=== PATIENT | female | born 1950 | race Caucasian/White ===

== ENCOUNTER 2021-09-25 11:31 | Outpatient (CLI) | payer MEDICARE ==
[~2021-09-25 11:31] MED LIST: ATOR40TA PO; BUPR150T5 PO; DIPH25CA83 PO
[2021-09-25 12:16] LABS: MEAN CORPUSCULAR HEMOGLOBIN 31.1 uug (24.7-32.8); MEAN CORPUSCULAR VOLUME 91.2 fL (75.5-95.3); PLATELET COUNT (AUTO) 270 K/uL (179-408)
[2021-09-25 12:28] LABS: ALANINE AMINOTRANSFERASE 23 U/L (14-59); ALKALINE PHOSPHATASE 117 U/L (50-136); ASPARTATE AMINOTRANSFERASE 10 U/L (15-37); BILIRUBIN,TOTAL 0.6 mg/dL (0.2-1.0); CARBON DIOXIDE 30 mmol/L (21-32); CHLORIDE 105 mmol/L (98-107); CREATININE 0.9 mg/dL (0.6-1.3); GLUCOSE 97 mg/dL (74-106); POTASSIUM 4.2 mmol/L (3.5-5.1); TOTAL PROTEIN, SERUM 7.2 g/dL (6.4-8.2); UREA NITROGEN, BLOOD 19 mg/dL (7-18)
[2021-09-25 16:15] LABS: LIPASE 103 U/L (73-393)
[2021-09-26 07:07] LABS: *CELIAC IMMUNOGLOBULIN A 64 mg/dL (87-352)
[2021-09-28 10:07] LABS: *CELIAC T-TRANSGLUTAMINASE IGA <2 U/mL (0-3); *CELIAC T-TRANSGLUTAMINASE IGG <2 U/mL (0-5)
[2021-09-28 13:06] LABS: *CELIAC DEAMIDATED GLIADIN IGA 2 units (0-19); *CELIAC DEAMIDATED GLIADIN IGG 2 units (0-19)
== END 2021-09-25 23:59 | disposition home or self-care (01) ==
LOC: LAB 11:31
PROVIDERS: ATTEND Internal Medicine Gastroenterology
DX: R10.84 Generalized abdominal pain (principal); R19.7 Diarrhea, unspecified
CPT/HCPCS: 36415; 83690; 85025; 85651; 86140